=== PATIENT | male | born 1965 | race Caucasian/White ===

== ENCOUNTER 2020-05-20 13:42 | Inpatient (IN) | payer OTHER ==
[2020-05-20] MEDS ORDERED: SODIUM CHLORIDE 0.9% 1,000 ML IV ONE ×2 (14:10→16:29)
--- NOTE | 2020-05-20 14:12 | ED ---
General Adult HPI - General Stated complaint: Detox Time Seen by Provider: 05/20/20 13:45 Source: patient, RN notes reviewed, old records reviewed - History of Present Illness Initial comments: This is a 54-year-old male who presents emergency Department stating he is here is he wants detox. Patient went to [facility] and they told him because he was on blood thinners for a DVT they did not want to accept him. Patient then was transferred here by EMS. Patient states she has no physical complaints today. Patient denies headache patient denies lightheadedness or dizziness. Patient denies any fever chills or cough per patient denies any chest pain or palpitations. Patient denies any abdominal pain patient has vomiting diarrhea. Patient states been drinking extremely heavily for the last 2 years and just wants to detox and stop drinking. Patient denies any drug use. Patient states she's been on eliquis and he takes it as prescribed. - Related Data Home Medications Medication Instructions Recorded Confirmed Albuterol Sulfate [Ventolin HFA] 1 - 2 puff INHALATION RT-Q4H PRN 05/20/20 05/20/20 Allopurinol [Zyloprim] 100 mg PO DAILY 05/20/20 05/20/20 Apixaban [Eliquis] 5 mg PO BID 05/20/20 05/20/20 Atorvastatin [Lipitor] 20 mg PO HS 05/20/20 05/20/20 Cholecalciferol [Vitamin D3 (25 1,000 unit PO DAILY 05/20/20 05/20/20 Mcg = 1000 Iu)] Clopidogrel [Plavix] 75 mg PO DAILY 05/20/20 05/20/20 Insulin Glargine,Hum.rec.anlog 15 unit SQ HS 05/20/20 05/20/20 [Basaglar Kwikpen U-100] Insulin Lispro [Admelog Solostar] See Protocol SQ AC-TID 05/20/20 05/20/20 Lisinopril [Zestril] 5 mg PO DAILY 05/20/20 05/20/20 Multivitamins, Thera [Multivitamin 1 tab PO DAILY 05/20/20 05/20/20 (formulary)] QUEtiapine XR [SEROquel XR] 150 mg PO HS 05/20/20 05/20/20 Allergies Allergy/AdvReac Type Severity Reaction Status Date / Time No Known Allergies Allergy Verified 05/20/20 14:50 Review of Systems ROS Statement: Those systems with pertinent positive or pertinent negative responses have been documented in the HPI. ROS Other: All systems not noted in ROS Statement are negative. General Exam - General Exam Comments Initial Comments: GENERAL: Patient is well-developed and well-nourished. Patient is nontoxic and well- hydrated and is in no acute distress. Patient appears intoxicated ENT: Neck is soft and supple. No significant lymphadenopathy is noted. Oropharynx is clear. Moist mucous membranes. Neck has full range of motion without eliciting any pain. EYES: The sclera were anicteric and conjunctiva were pink and moist. Extraocular movements were intact and pupils were equal round and reactive to light. Eyelids were unremarkable. PULMONARY: Unlabored respirations. Good breath sounds bilaterally. No audible rales rhonchi or wheezing was noted. CARDIOVASCULAR: There is a regular rate and rhythm without any murmurs gallops or rubs. ABDOMEN: Soft and nontender with normal bowel sounds. SKIN: Skin is clear with no lesions or rashes and otherwise unremarkable. NEUROLOGIC: Patient is alert and oriented x3. Cranial nerves II through XII are grossly intact. Motor and sensory are also intact. Normal speech, volume and content. Symmetrical smile. MUSCULOSKELETAL: Normal extremities with adequate strength and full range of motion. LYMPHATICS: No significant lymphadenopathy is noted PSYCHIATRIC: Normal psychiatric evaluation. Course Vital Signs 05/20/20 05/20/20 13:47 15:30 Temperature 98.0 F Pulse Rate 54 L 63 Respiratory 18 18 Rate Blood Pressure 99/72 108/69 O2 Sat by Pulse 98 99 Oximetry Medical Decision Making - Lab Data Result diagrams: 05/20/20 14:50 05/20/20 14:50 Lab Results 05/20/20 05/20/20 Range/Units 14:50 14:50 WBC 10.3 (3.8-10.6) k/uL RBC 4.29 L (4.30-5.90) m/uL Hgb 13.7 (13.0-17.5) gm/dL Hct 43.2 (39.0-53.0) % MCV 100.7 H (80.0-100.0) fL MCH 32.1 (25.0-35.0) pg MCHC 31.8 (31.0-37.0) g/dL RDW 13.3 (11.5-15.5) % Plt Count 172 (150-450) k/uL Neutrophils % 68 % Lymphocytes % 24 % Monocytes % 4 % Eosinophils % 1 % Basophils % 1 % Neutrophils # 6.9 (1.3-7.7) k/uL Lymphocytes # 2.5 (1.0-4.8) k/uL Monocytes # 0.5 (0-1.0) k/uL Eosinophils # 0.1 (0-0.7) k/uL Basophils # 0.1 (0-0.2) k/uL Sodium 131 L (137-145) mmol/L Potassium 4.3 (3.5-5.1) mmol/L Chloride 101 (98-107) mmol/L Carbon Dioxide 13 L (22-30) mmol/L Anion Gap 17 mmol/L BUN 15 (9-20) mg/dL Creatinine 1.03 (0.66-1.25) mg/dL Est GFR (CKD-EPI)AfAm >90 (>60 ml/min/1.73 sqM) Est GFR (CKD-EPI)NonAf 83 (>60 ml/min/1.73 sqM) Glucose 223 H (74-99) mg/dL Calcium 7.8 L (8.4-10.2) mg/dL Magnesium 2.0 (1.6-2.3) mg/dL Total Bilirubin 1.6 H (0.2-1.3) mg/dL AST 339 H (17-59) U/L ALT 147 H (4-49) U/L Alkaline Phosphatase 323 H (38-126) U/L Total Protein 6.0 L (6.3-8.2) g/dL Albumin 3.0 L (3.5-5.0) g/dL Serum Alcohol 235 H* mg/dL Disposition Clinical Impression: Alcoholic intoxication Disposition: ADMITTED IP TO THIS [facility] Referrals: Nonstaff,Physician [Primary Care Provider] - 1-2 days Time of Disposition: 16:09
[2020-05-20 15:10] LABS: Basophils # (A) 0.1 k/uL (0-0.2); Basophils % (A) 1 %; Eosinophils # (A) 0.1 k/uL (0-0.7); Eosinophils % (A) 1 %; HCT 43.2 % (39.0-53.0); HGB 13.7 gm/dL (13.0-17.5); Lymphocytes # (A) 2.5 k/uL (1.0-4.8); Lymphocytes % (A) 24 %; MCH 32.1 pg (25.0-35.0); MCHC 31.8 g/dL (31.0-37.0); MCV 100.7 fL (80.0-100.0); Mean Platelet Volume 7.9; Monocytes # (A) 0.5 k/uL (0-1.0); Monocytes % (A) 4 %; Neutrophils # (A) 6.9 k/uL (1.3-7.7); Neutrophils % (A) 68 %; Platelet Count 172 k/uL (150-450); RBC 4.29 m/uL (4.30-5.90); RDW 13.3 % (11.5-15.5); WBC 10.3 k/uL (3.8-10.6)
[2020-05-20 15:20] LABS: ALT 147 U/L (4-49); AST 339 U/L (17-59); African American GFR (CKD) >90 (>60 ml/min/1.73 sqM); Alkaline Phosphatase 323 U/L (38-126); Anion Gap 17 mmol/L; Blood Urea Nitrogen 15 mg/dL (9-20); Calcium 7.8 mg/dL (8.4-10.2); Carbon Dioxide 13 mmol/L (22-30); Chloride 101 mmol/L (98-107); Glucose 223 mg/dL (74-99); Non-African American GFR(CKD) 83 (>60 ml/min/1.73 sqM); Potassium 4.3 mmol/L (3.5-5.1); Sodium 131 mmol/L (137-145); Total Bilirubin 1.6 mg/dL (0.2-1.3)
[2020-05-20 15:41] LABS: Alcohol 235 mg/dL
[2020-05-20] MEDS ORDERED: THIAMINE 100 MG/ML 2 ML VIAL IM STA (16:29)
[2020-05-20] MEDS ORDERED: LORazepam 2 MG/ML INJ IV PRN ×2 (16:29)
[2020-05-20] MEDS: LORazepam 2 MG/ML INJ IV PRN (20:41)
[2020-05-21 02:09] LABS: Glucose,Whole Blood 202 mg/dL (75-99)
[2020-05-21] MEDS: APIXABAN 5 MG TAB PO SCH ×3 (02:21→21:16)
[2020-05-21] MEDS: QUEtiapine 25 MG TAB PO SCH ×3 (02:21→21:16)
[2020-05-21 06:49] LABS: Glucose,Whole Blood 158 mg/dL (75-99)
[2020-05-21] MEDS: INSULIN ASPART (NovoLOG) 100 UNIT/ML VIAL SQ SCH ×4 (09:04→21:16)
[2020-05-21] MEDS: THIAMINE 100 MG TAB PO SCH ×2 (09:17→17:26)
[2020-05-21] MEDS: LORazepam 2 MG/ML INJ IV PRN ×2 (09:18→21:33)
[2020-05-21 12:23] LABS: Glucose,Whole Blood 208 mg/dL (75-99)
--- NOTE | 2020-05-21 13:04 | P.HPIM ---
History of Present Illness Patient is a pleasant 54-year-old female with known history of all call abuse was in here after she was sent in from [place] where he presented there for alcohol rehabilitation program patient is advised to go to the hospital to get detoxed and the treated for alcohol withdrawals. Patient does drink one fifth of hard liquor every single day. Patient presently have not have any withdrawals last drink was last night. Patient denied any fever chills nausea vomiting abdominal pain patient denied any smoking history.. Patient is severely depressed although denied any suicidal or homicidal ideations at this time. Review of Systems REVIEW OF SYSTEMS: CONSTITUTIONAL: No fever, no malaise, no fatigue. HEENT: No recent visual problems or hearing problems. Denied any sore throat. CARDIOVASCULAR: No chest pain, orthopnea, PND, no palpitations, no syncope. PULMONARY: No shortness of breath, no cough, no hemoptysis. GASTROINTESTINAL: No diarrhea, no nausea, no vomiting, no abdominal pain. NEUROLOGICAL: No headaches, no weakness, no numbness. HEMATOLOGICAL: Denies any bleeding or petechiae. GENITOURINARY: Denies any burning micturition, frequency, or urgency. MUSCULOSKELETAL/RHEUMATOLOGICAL: Denies any joint pain, swelling, or any muscle pain. ENDOCRINE: Denies any polyuria or polydipsia. The rest of the 14-point review of systems is negative. Past Medical History Past Medical History: Coronary Artery Disease (CAD), Diabetes Mellitus, Deep Vein Thrombosis (DVT), Hyperlipidemia, Hypertension Additional Past Medical History / Comment(s): Recent right leg DVT History of Any Multi-Drug Resistant Organisms: None Reported Additional Past Surgical History / Comment(s): Gastric bypass 2001, tumor removed from bladder Past Anesthesia/Blood Transfusion Reactions: No Reported Reaction Past Psychological History: Bipolar, Depression Smoking Status: Never smoker Past Alcohol Use History: Abuse, Heavy Past Drug Use History: Marijuana Medications and Allergies Home Medications Medication Instructions Recorded Confirmed Type Albuterol Sulfate [Ventolin HFA] 1 - 2 puff INHALATION RT-Q4H PRN 05/20/20 05/20/20 History Allopurinol [Zyloprim] 100 mg PO DAILY 05/20/20 05/20/20 History Apixaban [Eliquis] 5 mg PO BID 05/20/20 05/20/20 History Atorvastatin [Lipitor] 20 mg PO HS 05/20/20 05/20/20 History Cholecalciferol [Vitamin D3 (25 1,000 unit PO DAILY 05/20/20 05/20/20 History Mcg = 1000 Iu)] Clopidogrel [Plavix] 75 mg PO DAILY 05/20/20 05/20/20 History Insulin Glargine,Hum.rec.anlog 15 unit SQ HS 05/20/20 05/20/20 History [Basaglar Kwikpen U-100] Insulin Lispro [Admelog Solostar] See Protocol SQ AC-TID 05/20/20 05/20/20 History Lisinopril [Zestril] 5 mg PO DAILY 05/20/20 05/20/20 History Multivitamins, Thera [Multivitamin 1 tab PO DAILY 05/20/20 05/20/20 History (formulary)] QUEtiapine XR [SEROquel XR] 150 mg PO HS 05/20/20 05/20/20 History Allergies Allergy/AdvReac Type Severity Reaction Status Date / Time No Known Allergies Allergy Verified 05/20/20 14:50 Physical Exam Vitals: Vital Signs Temp Pulse Pulse Resp BP BP Pulse Ox 05/21/20 08:00 97.8 F 74 118/73 98 05/21/20 04:10 98.1 F 57 L 14 142/88 99 05/21/20 00:25 98.3 F 61 12 133/87 97 05/21/20 00:17 63 16 137/93 97 05/20/20 19:30 98.2 F 62 18 119/76 96 05/20/20 16:30 88 18 114/70 96 05/20/20 15:30 63 18 108/69 99 05/20/20 13:47 98.0 F 54 L 18 99/72 98 Intake and Output 05/20/20 05/21/20 05/21/20 22:59 06:59 14:59 Other: Voiding Method Toilet Toilet # Voids 1 Weight 127.006 kg PHYSICAL EXAMINATION: GENERAL: The patient is alert and oriented x3, not in any acute distress. Well developed, well nourished. HEENT: Pupils are round and equally reacting to light. EOMI. No scleral icterus. No conjunctival pallor. Normocephalic, atraumatic. No pharyngeal erythema. No thyromegaly. CARDIOVASCULAR: S1 and S2 present. No murmurs, rubs, or gallops. PULMONARY: Chest is clear to auscultation, no wheezing or crackles. ABDOMEN: Soft, nontender, nondistended, normoactive bowel sounds. No palpable organomegaly. MUSCULOSKELETAL: No joint swelling or deformity. EXTREMITIES: No cyanosis, clubbing, or pedal edema. NEUROLOGICAL: Gross neurological examination did not reveal any focal deficits. SKIN: No rashes. Results CBC & Chem 7: 05/20/20 14:50 05/20/20 14:50 Labs: Abnormal Lab Results - Last 24 Hours (Table) 05/20/20 05/20/20 05/21/20 Range/Units 14:50 14:50 02:07 RBC 4.29 L (4.30-5.90) m/uL MCV 100.7 H (80.0-100.0) fL Sodium 131 L (137-145) mmol/L Carbon Dioxide 13 L (22-30) mmol/L Glucose 223 H (74-99) mg/dL POC Glucose (mg/dL) 202 H (75-99) mg/dL Calcium 7.8 L (8.4-10.2) mg/dL Total Bilirubin 1.6 H (0.2-1.3) mg/dL AST 339 H (17-59) U/L ALT 147 H (4-49) U/L Alkaline Phosphatase 323 H (38-126) U/L Total Protein 6.0 L (6.3-8.2) g/dL Albumin 3.0 L (3.5-5.0) g/dL Serum Alcohol 235 H* mg/dL 05/21/20 05/21/20 Range/Units 06:47 12:21 RBC (4.30-5.90) m/uL MCV (80.0-100.0) fL Sodium (137-145) mmol/L Carbon Dioxide (22-30) mmol/L Glucose (74-99) mg/dL POC Glucose (mg/dL) 158 H 208 H (75-99) mg/dL Calcium (8.4-10.2) mg/dL Total Bilirubin (0.2-1.3) mg/dL AST (17-59) U/L ALT (4-49) U/L Alkaline Phosphatase (38-126) U/L Total Protein (6.3-8.2) g/dL Albumin (3.5-5.0) g/dL Serum Alcohol mg/dL Thrombosis Risk Factor Assmnt - Choose All That Apply Any of the Below Risk Factors Present?: No Each Risk Factor Represents 3 Points: History of DVT/PE Thrombosis Risk Factor Assessment Total Risk Factor Score: 3 Thrombosis Risk Factor Assessment Level: Moderate Risk Assessment and Plan Plan: - alcohol intoxication: Patient is sober now Alcohol withdrawal patient will be monitored for alcohol withdrawal which is expected to happen today and tomorrow will be treated with Ativan will follow [facility] protocol. She was started on thiamine multivitamin supplementation -Acute alcoholic hepatitis: Expected to improve with cessation of alcohol -Type 2 diabetes mellitus patient blood sugars are elevated patient will be continued on his long-acting insulin along with lying scale insulin. -Hypertension continue with the FLAKITO inhibitor -History of DVT patient is on Eliquis which will be continued patient is also receiving Plavix probably because of his coronary disease patient does have history of sick CAD -History of coronary artery disease -Hyperlipidemia -Major depression: Antidepressants will not be effective with alcohol blood be started on any at this time upon discharge will consider SSRIs -Marijuana use and alcohol use: Counseling was provided
--- NOTE | 2020-05-21 14:14 | P.CON ---
Consult Note - . Consult date: 05/21/20 Assessment/Plan:: I reviewed the medical record and discussed the case with the EPS nurse. I concur with the recommendations documented in the EPS assessment.
[2020-05-21] MEDS: ALBUTEROL HFA INHALER INHALATION PRN (16:12)
[2020-05-21 16:43] LABS: Glucose,Whole Blood 211 mg/dL (75-99)
[2020-05-21] MEDS ORDERED: ACETAMINOPHEN TAB 325 MG TAB PO PRN (19:54)
[2020-05-21 20:28] LABS: Glucose,Whole Blood 151 mg/dL (75-99)
[2020-05-21] MEDS: INSULIN DETEMIR (LEVEMIR) 100 UNIT/ML SYR SQ SCH (21:16)
[2020-05-22 07:24] LABS: Glucose,Whole Blood 64 mg/dL (75-99)
[2020-05-22 07:40] LABS: Glucose,Whole Blood 69 mg/dL (75-99)
[2020-05-22 07:57] LABS: Glucose,Whole Blood 95 mg/dL (75-99)
[2020-05-22] MEDS: INSULIN ASPART (NovoLOG) 100 UNIT/ML VIAL SQ SCH ×4 (07:59→20:13)
[2020-05-22] MEDS: QUEtiapine 25 MG TAB PO SCH ×2 (08:37→20:12)
[2020-05-22] MEDS: CLOPIDOGREL 75 MG TAB PO SCH (08:37)
[2020-05-22] MEDS: ALLOPURINOL 100 MG TAB PO SCH (08:38)
[2020-05-22] MEDS: THIAMINE 100 MG TAB PO SCH ×2 (08:38→17:34)
[2020-05-22] MEDS: APIXABAN 5 MG TAB PO SCH ×2 (08:38→20:12)
[2020-05-22] MEDS: LISINOPRIL 5 MG TAB PO SCH (08:38)
[2020-05-22 09:36] LABS: HCT 37.3 % (39.0-53.0); HGB 11.8 gm/dL (13.0-17.5); MCH 32.8 pg (25.0-35.0); MCHC 31.7 g/dL (31.0-37.0); MCV 103.2 fL (80.0-100.0); Macrocytosis Slight; Mean Platelet Volume 8.1; Platelet Count 125 k/uL (150-450); RBC 3.62 m/uL (4.30-5.90); RDW 13.2 % (11.5-15.5); WBC 6.8 k/uL (3.8-10.6)
[2020-05-22 09:49] LABS: AST 577 U/L (17-59); African American GFR (CKD) >90 (>60 ml/min/1.73 sqM); Albumin 2.4 g/dL (3.5-5.0); Alkaline Phosphatase 272 U/L (38-126); Anion Gap 9 mmol/L; Blood Urea Nitrogen 8 mg/dL (9-20); Carbon Dioxide 17 mmol/L (22-30); Chloride 104 mmol/L (98-107); Glucose 201 mg/dL (74-99); Non-African American GFR(CKD) >90 (>60 ml/min/1.73 sqM); Potassium 3.8 mmol/L (3.5-5.1); Sodium 130 mmol/L (137-145); Total Bilirubin 2.9 mg/dL (0.2-1.3); Total Protein 5.1 g/dL (6.3-8.2)
[2020-05-22 10:10] LABS: ALT 161 U/L (4-49)
[2020-05-22] MEDS ORDERED: IBUPROFEN 200 MG TAB PO PRN (11:02)
[2020-05-22 11:55] LABS: Glucose,Whole Blood 145 mg/dL (75-99)
[2020-05-22 16:50] LABS: Glucose,Whole Blood 144 mg/dL (75-99)
[2020-05-22 20:05] LABS: Glucose,Whole Blood 155 mg/dL (75-99)
[2020-05-22] MEDS: PANTOPRAZOLE 40 MG TABLET PO SCH (20:12)
[2020-05-22] MEDS: INSULIN DETEMIR (LEVEMIR) 100 UNIT/ML SYR SQ SCH (20:13)
--- NOTE | 2020-05-22 20:42 | PN ---
PROGRESS NOTE DATE OF SERVICE: 05/22/2020 This 54-year-old gentleman admitted for alcohol rehab, had alcohol intoxication and DTs. Patient also has significant alcoholic hepatitis. AST is elevated, ALT is elevated at 577 and 161 respectively and bilirubin is 2.9. The patient is closely monitored at this time. Patient also has thrombocytopenia. PAST MEDICAL HISTORY: Reviewed. REVIEW OF SYSTEMS: CARDIOVASCULAR: No angina. RESPIRATORY: No cough or hemoptysis. GI: No nausea, diarrhea. : No dysuria. NERVOUS SYSTEM: No numbness or weakness. CURRENT MEDICATIONS: Ventolin, zyloprim, Eliquis, Plavix, Advil p.r.n., NovoLog, Levemir, Zestril, Ativan, Seroquel and vitamin B1. PHYSICAL EXAM: Patient is alert, oriented x3. The pulse is 92, blood pressure 107/75, respiration rate 16, temperature 99.2, pulse ox 97% on room air. HEENT: Conjunctivae normal. Oral mucosa moist. NECK: No jugular venous distention. No lymph node enlargement. CARDIOVASCULAR: S1, S2, muffled. No S3, no S4, RESPIRATORY: Diminished breath sounds at the bases. A few scattered rhonchi and crackles. ABDOMEN: Soft, nontender. LEGS: No edema, no swelling. NERVOUS SYSTEM: No focal motor or sensory deficits. LABS: WBC 6.8, hemoglobin 7.2, sodium 130, potassium 3.8. LFTs are noted. ASSESSMENT: 1. Acute alcohol intoxication. 2. Acute alcohol withdrawal symptoms. 3. Acute alcoholic hepatitis. 4. Diabetes mellitus type 2. 5. Hypertension. 6. History of deep venous thrombosis, on Eliquis. 7. History of coronary artery disease. 8. Hyperlipidemia. 9. Major depression. 10.History of THC. 11.Hyponatremia, mild. 12.Anemia, macrocytic. 13.Thrombocytopenia secondary to alcohol. 14.Hypoalbuminemia with mild protein-calorie malnutrition. 15.FULL CODE. RECOMMENDATIONS AND DISCUSSION: In this 54-year-old gentleman who presented with multiple complex medical issues, we will monitor the patient closely, continue the current management, continue symptomatic treatment. I recommend to avoid hepatotoxic medications including Tylenol. Otherwise, repeat labs. I would also recommend proton pump inhibitors. Guarded prognosis because of multiple complex medical issues. [facility] protocol and continue to monitor. Seizure precautions. Further recommendations to follow. See orders for details. MMODL / IJN: [id number] /
[2020-05-23 01:49] LABS: Glucose,Whole Blood 47 mg/dL (75-99)
[2020-05-23 02:32] LABS: Glucose,Whole Blood 173 mg/dL (75-99)
[2020-05-23 06:49] LABS: Glucose,Whole Blood 88 mg/dL (75-99)
[2020-05-23] MEDS: INSULIN ASPART (NovoLOG) 100 UNIT/ML VIAL SQ SCH ×4 (07:01→21:09)
[2020-05-23] MEDS: CHOLECALCIFEROL 1,000 UNIT TAB PO SCH (09:03)
[2020-05-23] MEDS: ALLOPURINOL 100 MG TAB PO SCH (09:03)
[2020-05-23] MEDS: LISINOPRIL 5 MG TAB PO SCH (09:03)
[2020-05-23] MEDS: MULTIVITAMINS, THERA 1 EACH TAB PO SCH (09:03)
[2020-05-23] MEDS: THIAMINE 100 MG TAB PO SCH ×2 (09:03→17:20)
[2020-05-23] MEDS: CLOPIDOGREL 75 MG TAB PO SCH (09:03)
[2020-05-23] MEDS: QUEtiapine 25 MG TAB PO SCH ×2 (09:04→21:12)
[2020-05-23] MEDS: APIXABAN 5 MG TAB PO SCH ×2 (09:04→21:12)
[2020-05-23] MEDS: PANTOPRAZOLE 40 MG TABLET PO SCH (09:04)
[2020-05-23 09:55] LABS: Basophils # (A) 0.1 k/uL (0-0.2); Basophils % (A) 1 %; Eosinophils # (A) 0.5 k/uL (0-0.7); Eosinophils % (A) 7 %; HCT 38.6 % (39.0-53.0); HGB 12.2 gm/dL (13.0-17.5); Lymphocytes # (A) 1.4 k/uL (1.0-4.8); Lymphocytes % (A) 20 %; MCH 32.2 pg (25.0-35.0); MCHC 31.6 g/dL (31.0-37.0); MCV 102.1 fL (80.0-100.0); Macrocytosis Slight; Mean Platelet Volume 8.3; Monocytes # (A) 0.4 k/uL (0-1.0); Monocytes % (A) 6 %; Neutrophils # (A) 4.3 k/uL (1.3-7.7); Neutrophils % (A) 64 %; Platelet Count 125 k/uL (150-450); RBC 3.78 m/uL (4.30-5.90); RDW 13.4 % (11.5-15.5); WBC 6.7 k/uL (3.8-10.6)
[2020-05-23 10:20] LABS: ALT 154 U/L (4-49); AST 439 U/L (17-59); African American GFR (CKD) >90 (>60 ml/min/1.73 sqM); Albumin 2.4 g/dL (3.5-5.0); Alkaline Phosphatase 296 U/L (38-126); Anion Gap 6 mmol/L; Blood Urea Nitrogen 6 mg/dL (9-20); Calcium 8.1 mg/dL (8.4-10.2); Carbon Dioxide 21 mmol/L (22-30); Chloride 104 mmol/L (98-107); Glucose 168 mg/dL (74-99); Non-African American GFR(CKD) 84 (>60 ml/min/1.73 sqM); Potassium 4.2 mmol/L (3.5-5.1); Sodium 131 mmol/L (137-145); Total Bilirubin 3.9 mg/dL (0.2-1.3); Total Protein 4.9 g/dL (6.3-8.2)
[2020-05-23 11:39] LABS: Glucose,Whole Blood 140 mg/dL (75-99)
[2020-05-23 16:52] LABS: Glucose,Whole Blood 279 mg/dL (75-99)
[2020-05-23 20:24] LABS: Glucose,Whole Blood 65 mg/dL (75-99)
--- NOTE | 2020-05-23 20:42 | PN ---
PROGRESS NOTE DATE OF SERVICE: 05/23/2020 This 54-year-old gentleman admitted with acute alcohol intoxication also had some withdrawal symptoms. Patient also had elevated AST, ALT, indicating acute alcoholic hepatitis. Also, the patient was slated to go to with [facility] at this time. Psychiatry is following the patient closely. No chest pain. No palpitations. No fever. PHYSICAL EXAMINATION: Alert and oriented x3. Pulse is 91, blood pressure 133/80, respiration 18, temperature 97.4, pulse ox 98% on room air. HEENT: Conjunctivae normal. Oral mucosa moist. NECK: No jugular venous distention. No lymph node enlargement. CARDIOVASCULAR: S1, S2, muffled. No S3, no S4, RESPIRATORY: Diminished breath sounds at the bases. No rhonchi, no crackles. ABDOMEN: Soft, nontender. LEGS: No edema, no swelling. NERVOUS SYSTEM: No focal motor or sensory deficits. LABS: WBC 7.2, hemoglobin 12.2, platelets 125. Otherwise, AST is 439, ALT is 154, bilirubin 3.9. ASSESSMENT: 1. Acute alcohol intoxication. 2. Acute alcohol withdrawal symptoms. 3. Acute alcoholic hepatitis. 4. Diabetes mellitus type 2. 5. Hypertension. 6. History of deep venous thrombosis, on Eliquis. 7. History of coronary artery disease. 8. Hyperlipidemia. 9. Major depression. 10.History of THC. 11.Hyponatremia, mild. 12.Anemia, macrocytic. 13.Thrombocytopenia secondary to ETOH. 14.Hypoalbuminemia with mild protein-calorie malnutrition. 15.FULL CODE. RECOMMENDATIONS AND DISCUSSION: I recommend to continue current management and symptomatic treatment, repeat labs. Guarded prognosis. Further recommendations to follow. MMODL / IJN: [id number] /
[2020-05-23] MEDS: INSULIN DETEMIR (LEVEMIR) 100 UNIT/ML SYR SQ SCH (21:09)
[2020-05-23 21:12] LABS: Glucose,Whole Blood 79 mg/dL (75-99)
[2020-05-24 03:01] LABS: Glucose,Whole Blood 117 mg/dL (75-99)
[2020-05-24 07:16] LABS: Glucose,Whole Blood 150 mg/dL (75-99)
[2020-05-24] MEDS: INSULIN ASPART (NovoLOG) 100 UNIT/ML VIAL SQ SCH ×4 (07:25→22:37)
[2020-05-24] MEDS: QUEtiapine 25 MG TAB PO SCH ×2 (07:45→22:36)
[2020-05-24] MEDS: LISINOPRIL 5 MG TAB PO SCH (07:46)
[2020-05-24] MEDS: CHOLECALCIFEROL 1,000 UNIT TAB PO SCH (07:46)
[2020-05-24] MEDS: THIAMINE 100 MG TAB PO SCH ×2 (07:46→17:26)
[2020-05-24] MEDS: PANTOPRAZOLE 40 MG TABLET PO SCH (07:46)
[2020-05-24] MEDS: ALLOPURINOL 100 MG TAB PO SCH (07:46)
[2020-05-24] MEDS: MULTIVITAMINS, THERA 1 EACH TAB PO SCH (07:46)
[2020-05-24] MEDS: APIXABAN 5 MG TAB PO SCH ×2 (07:46→22:36)
[2020-05-24] MEDS: CLOPIDOGREL 75 MG TAB PO SCH (07:46)
[2020-05-24 09:53] LABS: Basophils # (A) 0.1 k/uL (0-0.2); Basophils % (A) 1 %; Eosinophils # (A) 0.4 k/uL (0-0.7); Eosinophils % (A) 6 %; HCT 38.6 % (39.0-53.0); HGB 11.8 gm/dL (13.0-17.5); Lymphocytes # (A) 1.3 k/uL (1.0-4.8); Lymphocytes % (A) 20 %; MCH 31.7 pg (25.0-35.0); MCHC 30.7 g/dL (31.0-37.0); MCV 103.2 fL (80.0-100.0); Macrocytosis Slight; Mean Platelet Volume 8.3; Monocytes # (A) 0.5 k/uL (0-1.0); Monocytes % (A) 7 %; Neutrophils # (A) 4.3 k/uL (1.3-7.7); Neutrophils % (A) 64 %; Platelet Count 132 k/uL (150-450); RBC 3.73 m/uL (4.30-5.90); RDW 13.4 % (11.5-15.5); WBC 6.7 k/uL (3.8-10.6)
[2020-05-24 10:07] LABS: ALT 140 U/L (4-49); AST 285 U/L (17-59); African American GFR (CKD) >90 (>60 ml/min/1.73 sqM); Albumin 2.3 g/dL (3.5-5.0); Alkaline Phosphatase 305 U/L (38-126); Anion Gap 8 mmol/L; Blood Urea Nitrogen 6 mg/dL (9-20); Calcium 7.8 mg/dL (8.4-10.2); Carbon Dioxide 21 mmol/L (22-30); Chloride 100 mmol/L (98-107); Glucose 269 mg/dL (74-99); Non-African American GFR(CKD) 85 (>60 ml/min/1.73 sqM); Potassium 4.4 mmol/L (3.5-5.1); Sodium 129 mmol/L (137-145); Total Bilirubin 4.9 mg/dL (0.2-1.3); Total Protein 4.8 g/dL (6.3-8.2)
[2020-05-24 11:28] LABS: Glucose,Whole Blood 235 mg/dL (75-99)
[2020-05-24 16:26] LABS: Glucose,Whole Blood 192 mg/dL (75-99)
[2020-05-24 20:19] LABS: Glucose,Whole Blood 215 mg/dL (75-99)
[2020-05-24] MEDS: INSULIN DETEMIR (LEVEMIR) 100 UNIT/ML SYR SQ SCH (22:37)
[2020-05-24] MEDS: ALBUTEROL HFA INHALER INHALATION PRN (23:05)
--- NOTE | 2020-05-25 00:51 | PN ---
PROGRESS NOTE DATE OF SERVICE: 05/24/2020 This 54-year-old gentleman admitted with acute alcohol intoxication also had alcoholic hepatitis. The patient is being closely monitored. No chest pain. No palpitations. No fever. The LFTs are slightly worsening today. PHYSICAL EXAMINATION: On exam, alert and oriented x3. Pulse 66, blood pressure 121/81, respiration 17, temperature 98.7, pulse ox 96% on room air. HEENT: Conjunctivae normal. NECK: No jugular venous distention. CARDIOVASCULAR: S1, S2 muffled. RESPIRATORY SYSTEM: Breath sounds diminished at the bases. No rhonchi, no crackles. ABDOMEN: Soft, obese, nontender. NERVOUS SYSTEM: No focal deficits. LABS: WBC 6.7, hemoglobin 11.8, platelets 132. Sodium 129, otherwise, bilirubin is 4.9, AST is 285 and ALT is 140. ASSESSMENT: 1. Acute alcohol intoxication. 2. Acute alcohol withdrawal symptoms. 3. Acute alcoholic hepatitis. 4. Diabetes mellitus type 2. 5. Hypertension. 6. History of deep venous thrombosis, on Eliquis. 7. History of coronary artery disease. 8. Hyperlipidemia. 9. Major depression. 10.History of THC. 11.Hyponatremia, mild. 12.Anemia macrocytic. 13.Thrombocytopenia secondary EtOH. 14.Hypoalbuminemia with mild protein calorie malnutrition. 15.FULL CODE. RECOMMENDATIONS AND DISCUSSION: Recommend to continue current medications, continue symptomatic treatment. Repeat labs. Closely monitor. Guarded prognosis because of multiple complex medical issues. Avoid hepatotoxic medications. Further recommendations to follow. MMODL / IJN: [id number] /
[2020-05-25 02:17] VITALS: RESP 18
[2020-05-25 02:46] LABS: Glucose,Whole Blood 106 mg/dL (75-99)
[2020-05-25] MEDS: ALBUTEROL HFA INHALER INHALATION PRN (02:46)
[2020-05-25 07:00] LABS: Glucose,Whole Blood 100 mg/dL (75-99)
[2020-05-25] MEDS: INSULIN ASPART (NovoLOG) 100 UNIT/ML VIAL SQ SCH ×2 (07:28→13:08)
[2020-05-25 07:43] VITALS: PULSE 73
[2020-05-25 08:08] VITALS: BP 145/91; TEMP 97.7
[2020-05-25] MEDS: QUEtiapine 25 MG TAB PO SCH (09:03)
[2020-05-25] MEDS: ALLOPURINOL 100 MG TAB PO SCH (09:03)
[2020-05-25] MEDS: MULTIVITAMINS, THERA 1 EACH TAB PO SCH (09:03)
[2020-05-25] MEDS: APIXABAN 5 MG TAB PO SCH (09:03)
[2020-05-25] MEDS: LISINOPRIL 5 MG TAB PO SCH (09:03)
[2020-05-25] MEDS: CLOPIDOGREL 75 MG TAB PO SCH (09:03)
[2020-05-25] MEDS: THIAMINE 100 MG TAB PO SCH (09:03)
[2020-05-25] MEDS: CHOLECALCIFEROL 1,000 UNIT TAB PO SCH (09:03)
[2020-05-25] MEDS: PANTOPRAZOLE 40 MG TABLET PO SCH (09:03)
[2020-05-25 09:45] LABS: Basophils # (A) 0.1 k/uL (0-0.2); Basophils % (A) 1 %; Eosinophils # (A) 0.4 k/uL (0-0.7); Eosinophils % (A) 5 %; HCT 36.9 % (39.0-53.0); HGB 11.3 gm/dL (13.0-17.5); Lymphocytes # (A) 1.5 k/uL (1.0-4.8); Lymphocytes % (A) 18 %; MCH 31.7 pg (25.0-35.0); MCHC 30.7 g/dL (31.0-37.0); MCV 103.3 fL (80.0-100.0); Macrocytosis Slight; Mean Platelet Volume 8.1; Monocytes # (A) 0.5 k/uL (0-1.0); Monocytes % (A) 7 %; Neutrophils # (A) 5.5 k/uL (1.3-7.7); Neutrophils % (A) 67 %; Platelet Count 130 k/uL (150-450); RBC 3.57 m/uL (4.30-5.90); RDW 13.6 % (11.5-15.5); WBC 8.2 k/uL (3.8-10.6)
[2020-05-25 10:01] LABS: ALT 125 U/L (4-49); AST 199 U/L (17-59); African American GFR (CKD) >90 (>60 ml/min/1.73 sqM); Albumin 2.3 g/dL (3.5-5.0); Alkaline Phosphatase 285 U/L (38-126); Anion Gap 7 mmol/L; Blood Urea Nitrogen 7 mg/dL (9-20); Calcium 7.8 mg/dL (8.4-10.2); Carbon Dioxide 23 mmol/L (22-30); Chloride 102 mmol/L (98-107); Glucose 176 mg/dL (74-99); Non-African American GFR(CKD) 82 (>60 ml/min/1.73 sqM); Potassium 4.5 mmol/L (3.5-5.1); Sodium 132 mmol/L (137-145); Total Bilirubin 4.3 mg/dL (0.2-1.3); Total Protein 4.7 g/dL (6.3-8.2)
[2020-05-25 10:48] LABS: Appearance,Urine Clear (Clear); Bilirubin,Urine 1+ (Negative); Blood,Urine Negative (Negative); Color,Urine Yellow; Glucose,Urine (UA) Negative (Negative); Ketones,Urine Negative (Negative); Leukocyte Esterase,Urine Negative (Negative); Nitrite,Urine Negative (Negative); Protein,Urine Negative (Negative); Specific Gravity,Urine 1.005 (1.001-1.035); Urobilinogen,Urine <2.0 mg/dL (<2.0)
[2020-05-25 11:46] LABS: Glucose,Whole Blood 164 mg/dL (75-99)
--- NOTE | 2020-05-25 23:29 | DS ---
DISCHARGE SUMMARY FINAL DIAGNOSES: 1. Acute alcohol intoxication, present on admission. 2. Acute alcohol withdrawal syndrome. 3. Acute alcoholic hepatitis. 4. Diabetes mellitus, type 2. 5. Hypertension. 6. History of deep venous thrombosis, on Eliquis. 7. History of coronary artery disease. 8. Hyperlipidemia. 9. History of major depression. 10.History of tetrahydrocannabinol. 11.Hyponatremia, mild. 12.Anemia, macrocytic. 13.Thrombocytopenia secondary EtOH. 14.Hypoalbuminemia with mild to moderate protein-calorie malnutrition. 15.FULL CODE. DISCHARGE DISPOSITION: The patient will be discharged in stable condition with guarded prognosis. The patient will be discharged to [facility]. HISTORY OF PRESENT ILLNESS: This 54-year-old gentleman with a past medical history of multiple medical problems was admitted from [facility] with alcohol intoxication and withdrawals. The patient was treated symptomatically. Patient improved significantly. The LFTs were elevated, indicating acute hepatitis, but stabilized with bilirubin 4.3 and AST 199, ALT 125. Recommended close outpatient followup. On exam, vitals are stable. CARDIOVASCULAR SYSTEM: S1, S2 muffled. ABDOMEN: Soft. NERVOUS SYSTEM: No focal deficit. The patient is medically and cardiac-arthur stable for rehab. DISCHARGE ADVICE AND MEDICATIONS: 1. Diet is cardiac. 2. Activity limited until followup. 3. Follow up with primary physician in 1-2 days. Follow-up labs CBC, CMP. 4. Lispro as before. 5. Lantus 15 units subcutaneously at bedtime. 6. Eliquis 5 mg p.o. b.i.d. 7. Multivitamins 1 p.o. daily. 8. Plavix 75 mg p.o. daily. 9. Seroquel XR 150 mg at bedtime. 10.Ventolin HFA 1 to 2 puffs q.6 p.r.n. 11.Vitamin D3 1000 mg p.o. daily. 12.Zestril 5 mg p.o. daily. 13.Zyloprim 100 mg p.o. daily. 14.Advil 200 mg q.6 p.r.n. 15.Protonix 40 mg p.o. b.i.d. 16.Vitamin B1 thiamine 100 mg p.o. b.i.d. MMODL / IJN: [id number] /
== END 2020-05-25 14:09 | disposition home or self-care (01) | DRG 897 ==
LOC: EC 13:42 → 1SOBS 16:29 → OBSVTOIN 05-21 11:26 → 4SSUR 05-21 18:44
PROVIDERS: ADMIT Internal Medicine; ATTEND Internal Medicine
DX: F10.220 Alcohol dependence with intoxication, uncomplicated (principal); E87.1 Hypo-osmolality and hyponatremia; E44.0 Moderate protein-calorie malnutrition; Z11.59 Encounter for screening for other viral diseases; F31.9 Bipolar disorder, unspecified; D69.59 Other secondary thrombocytopenia; F10.231 Alcohol dependence with withdrawal delirium; K70.10 Alcoholic hepatitis without ascites; E11.9 Type 2 diabetes mellitus without complications; I25.10 Atherosclerotic heart disease of native coronary artery without angina pectoris; I10 Essential (primary) hypertension; E78.5 Hyperlipidemia, unspecified; D53.9 Nutritional anemia, unspecified; Y90.7 Blood alcohol level of 200-239 mg/100 ml; Z68.35 Body mass index [BMI] 35.0-35.9, adult; Z79.01 Long term (current) use of anticoagulants; Z79.02 Long term (current) use of antithrombotics/antiplatelets; Z79.899 Other long term (current) drug therapy; Z86.718 Personal history of other venous thrombosis and embolism; Z98.84 Bariatric surgery status; Z98.890 Other specified postprocedural states
CPT/HCPCS: 36415; 80053; 80320; 81003; 83735; 85025; 85027; 93005; 94640; 96361; 96372; 96374; 99285

== ENCOUNTER → 2020-06-03 | Outpatient (CLI) | payer OTHER ==
[2020-06-03 14:57] LABS: Basophils # (A) 0.1 k/uL (0-0.2); Basophils % (A) 1 %; Eosinophils # (A) 0.7 k/uL (0-0.7); Eosinophils % (A) 6 %; HCT 36.2 % (39.0-53.0); HGB 10.8 gm/dL (13.0-17.5); Hypochromasia Slight; Lymphocytes # (A) 1.9 k/uL (1.0-4.8); Lymphocytes % (A) 17 %; MCH 31.6 pg (25.0-35.0); MCHC 29.9 g/dL (31.0-37.0); MCV 105.7 fL (80.0-100.0); Macrocytosis Moderate; Mean Platelet Volume 7.2; Monocytes # (A) 0.7 k/uL (0-1.0); Monocytes % (A) 6 %; Neutrophils # (A) 7.7 k/uL (1.3-7.7); Neutrophils % (A) 68 %; RBC 3.42 m/uL (4.30-5.90); RDW 14.2 % (11.5-15.5); WBC 11.3 k/uL (3.8-10.6)
[2020-06-03 15:02] LABS: Platelet Count 516 k/uL (150-450)
[2020-06-04 01:05] LABS: African American GFR (CKD) 99.1 (60.0-200.0); Albumin 2.7 g/dL (3.80-4.90); Albumin/Globulin Ratio 1.17 (1.60-3.17); Anion Gap 5.9 mmol/L (4.00-12.00); Carbon Dioxide 20.1 mmol/L (21.6-31.8); Globulin 2.3 g/dL (1.6-3.3); Non-African American GFR(CKD) 85.5 (60.0-200.0); Potassium 5.3 mmol/L (3.5-5.5); Total Bilirubin 1.7 mg/dL (0.3-1.2)
== END | disposition home or self-care (01) ==
LOC: LABWHC1 13:56
PROVIDERS: ATTEND Family Medicine
DX: N19 Unspecified kidney failure (principal)
CPT/HCPCS: 36415; 80053; 85025

== ENCOUNTER 2020-06-10 16:43 | Emergency (ER) | payer OTHER ==
[2020-06-10 16:47] VITALS: RESP 16
--- NOTE | 2020-06-10 17:17 | ED ---
Extremity Problem HPI - General Chief complaint: Extremity Problem,Nontraumatic Stated complaint: Leg swelling Time Seen by Provider: 06/10/20 17:00 Source: patient, RN notes reviewed Mode of arrival: ambulatory Limitations: no limitations - History of Present Illness Initial comments: This a 54-year-old male presents emergency Department with chief complaint of leg swelling, drainage. Patient states that this has been ongoing issue states is at [place] and he noticed itis sent him to the emergency Department today. He states he has no associated pain with a he has a known DVT in his right leg and which is on Eliquis. Patient denies chest pain or shortness breath no fevers and chills as any significant redness or any other complaints this time. - Related Data Home Medications Medication Instructions Recorded Confirmed Albuterol Sulfate [Ventolin HFA] 1 - 2 puff INHALATION RT-Q4H PRN 05/20/20 05/20/20 Apixaban [Eliquis] 5 mg PO BID 05/20/20 05/20/20 Cholecalciferol [Vitamin D3 (25 1,000 unit PO DAILY 05/20/20 05/20/20 Mcg = 1000 Iu)] Clopidogrel [Plavix] 75 mg PO DAILY 05/20/20 05/20/20 Insulin Glargine,Hum.rec.anlog 15 unit SQ HS 05/20/20 05/20/20 [Basaglar Kwikpen U-100] Insulin Lispro [Admelog Solostar] See Protocol SQ AC-TID 05/20/20 05/20/20 Multivitamins, Thera [Multivitamin 1 tab PO DAILY 05/20/20 05/20/20 (formulary)] QUEtiapine XR [SEROquel XR] 150 mg PO HS 05/20/20 05/20/20 allopurinoL [Zyloprim] 100 mg PO DAILY 05/20/20 05/20/20 lisinopriL [Zestril] 5 mg PO DAILY 05/20/20 05/20/20 Previous Rx's Medication Instructions Recorded Ibuprofen [Advil] 200 mg PO Q6HR PRN tab 05/25/20 Pantoprazole [Protonix] 40 mg PO AC-BRKFST #30 tablet. 05/25/20 Thiamine [Vitamin B-1] 100 mg PO BID-W/MEALS #30 tab 05/25/20 Allergies Allergy/AdvReac Type Severity Reaction Status Date / Time No Known Allergies Allergy Verified 06/10/20 16:44 Review of Systems ROS Statement: Those systems with pertinent positive or pertinent negative responses have been documented in the HPI. ROS Other: All systems not noted in ROS Statement are negative. Past Medical History Past Medical History: Coronary Artery Disease (CAD), Diabetes Mellitus, Deep Vein Thrombosis (DVT), Hyperlipidemia, Hypertension Additional Past Medical History / Comment(s): Recent right leg DVT History of Any Multi-Drug Resistant Organisms: None Reported Additional Past Surgical History / Comment(s): Gastric bypass 2001, tumor removed from bladder Past Anesthesia/Blood Transfusion Reactions: No Reported Reaction Past Psychological History: Bipolar, Depression Smoking Status: Never smoker Past Alcohol Use History: None Reported Past Drug Use History: None Reported General Exam Limitations: no limitations General appearance: alert, in no apparent distress Head exam: Present: atraumatic, normocephalic, normal inspection Eye exam: Present: normal appearance, PERRL, EOMI. Absent: scleral icterus, conjunctival injection, periorbital swelling ENT exam: Present: normal exam, mucous membranes moist Neck exam: Present: normal inspection, full ROM. Absent: tenderness, meningismus, lymphadenopathy Respiratory exam: Present: normal lung sounds bilaterally. Absent: respiratory distress, wheezes, rales, rhonchi, stridor Cardiovascular Exam: Present: regular rate, normal rhythm, normal heart sounds. Absent: systolic murmur, diastolic murmur, rubs, gallop, clicks Extremities exam: Present: other (Bilateral lower extremity swelling, pedal pulses equal bilaterally there is no tenderness there is mild erythema in the right leg. Patient states he had blood work 1 week ago and today.) Neurological exam: Present: alert, oriented X3 Skin exam: Present: warm, dry, intact Course Vital Signs 06/10/20 16:44 Temperature 99.2 F Pulse Rate 93 Respiratory 16 Rate Blood Pressure 130/84 O2 Sat by Pulse 100 Oximetry Medical Decision Making - Medical Decision Making 54-year-old male presented for leg swelling. Patient does have moderate baseline he has a known DVT currently being treated on Eliquis with no chest pain or shortness of breath. Patient has no clinical signs of infection labs were reviewed from outpatient follow-up and added BNP no acute findings of CHF no acute findings or renal failure. This may be related to chronic disease, DVT, for albumin level. Patient will be discharged in stable condition return parameters were discussed. Patient was very angry, hostile that he was in the emergency department stating that this is not emergency does not want to be here. He is very reluctant for any testing. Labs were added to prior blood work drawn earlier today. Patient denied and refused any further testing. - Lab Data Lab Results 06/10/20 Range/Units 13:50 NT-Pro-B Natriuret Pep 187 pg/mL Disposition Clinical Impression: Bilateral edema of lower extremity Disposition: HOME SELF-CARE Condition: Stable Instructions (If sedation given, give patient instructions): Leg Edema (ED) Additional Instructions: Please return to the Emergency Department if symptoms worsen or any other concerns. Please elevate your legs and wear compression stockings. Is patient prescribed a controlled substance at d/c from ED?: No Referrals: None,Stated [Primary Care Provider] - 1-2 days Time of Disposition: 19:08
[2020-06-10 20:27] VITALS: BP 127/86; PULSE 82; TEMP 98.5
== END 2020-06-10 20:26 | disposition home or self-care (01) ==
LOC: EC 16:43
DX: R60.0 Localized edema (principal); I25.10 Atherosclerotic heart disease of native coronary artery without angina pectoris; E11.9 Type 2 diabetes mellitus without complications; I10 Essential (primary) hypertension; E78.5 Hyperlipidemia, unspecified; F31.9 Bipolar disorder, unspecified; Z79.01 Long term (current) use of anticoagulants; Z79.02 Long term (current) use of antithrombotics/antiplatelets; Z79.4 Long term (current) use of insulin; Z79.899 Other long term (current) drug therapy; Z86.718 Personal history of other venous thrombosis and embolism; Z98.84 Bariatric surgery status
CPT/HCPCS: 36415; 83880; 99283

== ENCOUNTER → 2020-06-10 | Outpatient (CLI) | payer OTHER ==
[2020-06-10 14:14] LABS: Basophils # (A) 0.1 k/uL (0-0.2); Basophils % (A) 1 %; Eosinophils # (A) 0.6 k/uL (0-0.7); Eosinophils % (A) 6 %; HCT 37.3 % (39.0-53.0); HGB 11.4 gm/dL (13.0-17.5); Hypochromasia Moderate; Lymphocytes # (A) 1.8 k/uL (1.0-4.8); Lymphocytes % (A) 16 %; MCH 32.7 pg (25.0-35.0); MCHC 30.4 g/dL (31.0-37.0); MCV 107.5 fL (80.0-100.0); Macrocytosis Moderate; Mean Platelet Volume 7.2; Monocytes # (A) 0.7 k/uL (0-1.0); Monocytes % (A) 6 %; Neutrophils # (A) 7.7 k/uL (1.3-7.7); Neutrophils % (A) 69 %; Platelet Count 475 k/uL (150-450); RBC 3.47 m/uL (4.30-5.90); RDW 13.7 % (11.5-15.5); WBC 11.1 k/uL (3.8-10.6)
[2020-06-10 18:59] LABS: African American GFR (CKD) 99.1 (60.0-200.0); Albumin 2.6 g/dL (3.80-4.90); Albumin/Globulin Ratio 1.08 (1.60-3.17); Anion Gap 5.4 mmol/L (4.00-12.00); Calcium 8.2 mg/dL (8.7-10.3); Carbon Dioxide 21.6 mmol/L (21.6-31.8); Globulin 2.4 g/dL (1.6-3.3); Non-African American GFR(CKD) 85.5 (60.0-200.0); Potassium 5.1 mmol/L (3.5-5.5); Total Bilirubin 1.1 mg/dL (0.2-1.2)
== END | disposition home or self-care (01) ==
LOC: LABWHC1 13:43
PROVIDERS: ATTEND Family Medicine
DX: F10.20 Alcohol dependence, uncomplicated (principal)
CPT/HCPCS: 36415; 80053; 85025